=== PATIENT | female | born 1995 | race American Indian/Alaskan Native ===

== ENCOUNTER 2018-12-24 02:00 | Emergency (ER) | payer SELFPAY ==
[2018-12-24 02:07] VITALS: BP 125/83
[2018-12-24 02:36] LABS: Basophils % (Auto) 0.4 % (0.0-1.8); Eosinophils % (Auto) 0.4 % (0.0-4.3); Hematocrit 39.6 % (30.3-42.9); Lymphocytes # (Auto) 2.1 K/mm3 (1.2-5.4); Lymphocytes % (Auto) 43.8 % (13.4-35.0); Mean Corpuscular HGB Conc 33 % (30-34); Mean Corpuscular Volume 85 fl (79-97); Monocytes # (Auto) 0.5 K/mm3 (0.0-0.8); Monocytes % (Auto) 9.6 % (0.0-7.3); Platelet Count 322 K/mm3 (140-440); Red Blood Count 4.64 M/mm3 (3.65-5.03); Red Cell Distribution Width 15.2 % (13.2-15.2)
[2018-12-24 02:44] LABS: Alanine Aminotransferase 11 units/L (7-56); BUN/Creatinine Ratio 14; Blood Urea Nitrogen 11 mg/dL (7-17); Calcium 8.9 mg/dL (8.4-10.2); Hemolysis Index 8
--- NOTE | 2018-12-24 04:46 | Emergency Department Report ---
<LESLYE BUSTAMANTE PARISH - Last Filed: 12/24/18 05:04> ED Female HPI - General Chief complaint: Abdominal Pain Stated complaint: VAGINAL DISCHARGE BLOOD IN URINE MIGRAINES Source: patient Mode of arrival: Ambulatory Limitations: No Limitations - History of Present Illness Initial comments: This is a 23-year-old -[place] female presents to the emergency room with vaginal discharge for a couple of days. She also reports hematuria, pelvic cramping, urinary frequency, and urgency. As mentioned. This 12/06/2015, A1 miscarriage. Past medical history of asthma. Patient states she is sexually active with 1 male partner. She denies back pain. MD Complaint: vaginal discharge, dysuria, possible STD Onset/Timin -: days(s) Location: suprapubic Radiation: non-radiating Severity: mild Severity scale (0 -10): 2 Quality: cramping Consistency: now resolved Improves with: none Worsens with: none Are you Now?: No Last Menstrual Period: 12/05/18 EDC: 09/11/19 Associated Symptoms: vaginal discharge, abdominal pain, hematuria. denies: vaginal bleeding, nausea/vomiting, fever/chills, headaches, loss of appetite, dysuria, rash, seizure, shortness of breath, syncope, weakness - Related Data Sexually active: Yes : 1 Para: 0 A: 1 (miscarriage) Previous Rx's Medication Instructions Recorded Last Taken Type Fluconazole [Diflucan TAB] 150 mg PO ONCE #1 tablet 12/24/18 Unknown Rx Ondansetron [Zofran Odt] 4 mg PO Q6H PRN #15 tab.rapdis 12/24/18 Unknown Rx Sulfamethoxazole/Trimethoprim 1 each PO Q12H #20 tablet 12/24/18 Unknown Rx [Bactrim DS TAB] metroNIDAZOLE [Flagyl] 500 mg PO Q12HR #14 tab 12/24/18 Unknown Rx Allergies Allergy/AdvReac Type Severity Reaction Status Date / Time acetaminophen [From Tylenol] Allergy Hives Verified 12/24/18 02:04 latex Allergy Hives Verified 12/24/18 02:04 ED Review of Systems Constitutional: denies: chills, fever Respiratory: denies: cough, shortness of breath, wheezing Cardiovascular: denies: chest pain, palpitations Gastrointestinal: denies: abdominal pain (abdominal cramping), nausea, diarrhea Genitourinary: hematuria, discharge. denies: urgency, dysuria Musculoskeletal: denies: back pain, joint swelling, arthralgia Skin: denies: rash, lesions Neurological: denies: headache, weakness, paresthesias Psychiatric: denies: anxiety, depression ED Past Medical Hx - Past Medical History Previous Medical History?: Yes Hx Asthma: Yes - Surgical History Past Surgical History?: No - Social History Smoking Status: Current Every Day Smoker Substance Use Type: Alcohol - Medications Home Medications: Home Medications Medication Instructions Recorded Confirmed Last Taken Type Fluconazole [Diflucan TAB] 150 mg PO ONCE #1 tablet 12/24/18 Unknown Rx Ondansetron [Zofran Odt] 4 mg PO Q6H PRN #15 tab.rapdis 12/24/18 Unknown Rx Sulfamethoxazole/Trimethoprim 1 each PO Q12H #20 tablet 12/24/18 Unknown Rx [Bactrim DS TAB] metroNIDAZOLE [Flagyl] 500 mg PO Q12HR #14 tab 12/24/18 Unknown Rx ED Physical Exam - General Limitations: No Limitations General appearance: alert, in no apparent distress - Respiratory Respiratory exam: Present: normal lung sounds bilaterally. Absent: respiratory distress - Cardiovascular Cardiovascular Exam: Present: regular rate, normal rhythm. Absent: systolic murmur, diastolic murmur, rubs, gallop - GI/Abdominal GI/Abdominal exam: Present: soft, normal bowel sounds. Absent: distended, tenderness, guarding, rebound, rigid - External exam: Present: normal external exam Speculum exam: Present: vaginal discharge (malodorous yellowish-green discharge). Absent: erythema, cervical discharge, vaginal bleeding, foreign body, tissue, laceration Bi-manual exam: Present: normal bi-manual exam. Absent: cervical motion tendernes, adnexal tenderness - Back Exam Back exam: Absent: CVA tenderness (R), CVA tenderness (L) - Neurological Exam Neurological exam: Present: alert, oriented X3 - Psychiatric Psychiatric exam: Present: normal affect, normal mood - Skin Skin exam: Present: warm, dry, intact, normal color. Absent: rash ED Medical Decision Making - Lab Data Result diagrams: 12/24/18 02:11 12/24/18 02:11 Lab Results 12/24/18 12/24/18 12/24/18 Range/Units 02:11 02:11 02:11 WBC 4.9 (4.5-11.0) K/mm3 RBC 4.64 (3.65-5.03) M/mm3 Hgb 13.0 (10.1-14.3) gm/dl Hct 39.6 (30.3-42.9) % MCV 85 (79-97) fl MCH 28 (28-32) pg MCHC 33 (30-34) % RDW 15.2 (13.2-15.2) % Plt Count 322 (140-440) K/mm3 Lymph % (Auto) 43.8 H (13.4-35.0) % Banks % (Auto) 9.6 H (0.0-7.3) % Eos % (Auto) 0.4 (0.0-4.3) % Baso % (Auto) 0.4 (0.0-1.8) % Lymph # 2.1 (1.2-5.4) K/mm3 Banks # 0.5 (0.0-0.8) K/mm3 Eos # 0.0 (0.0-0.4) K/mm3 Baso # 0.0 (0.0-0.1) K/mm3 Seg Neutrophils % 45.8 (40.0-70.0) % Seg Neutrophils # 2.2 (1.8-7.7) K/mm3 Sodium 138 (137-145) mmol/L Potassium 3.7 (3.6-5.0) mmol/L Chloride 102.4 (98-107) mmol/L Carbon Dioxide 23 (22-30) mmol/L Anion Gap 16 mmol/L BUN 11 (7-17) mg/dL Creatinine 0.8 (0.7-1.2) mg/dL Estimated GFR > 60 ml/min BUN/Creatinine Ratio 14 % Glucose 85 (65-100) mg/dL Calcium 8.9 (8.4-10.2) mg/dL Total Bilirubin < 0.20 (0.1-1.2) mg/dL AST 20 (5-40) units/L ALT 11 (7-56) units/L Alkaline Phosphatase 94 (35-129) units/L Total Protein 7.5 (6.3-8.2) g/dL Albumin 4.0 (3.9-5) g/dL Albumin/Globulin Ratio 1.1 % HCG, Qual Negative (Negative) - Medical Decision Making This patient was evaluated by this provider. Vitals are stable and patient is in no acute distress. I obtained urinalysis, urine test, CBC, CMP, wet prep, and the gonorrhea and chlamydia via pelvic exam. The CBC, CMP, and test were all unremarkable. The wet prep, urinalysis, and gonorrhea and chlamydia pending. Chart signed to BRYCE Dewitt. On pelvic exam there were malodorous yellowish green discharge. Patient empirically treated with Rocephin and azithromycin. ED Disposition Clinical Impression: Trichomonal infection, STD (sexually transmitted disease), Acute urinary tract infection, Bacterial vaginosis Disposition: DC- TO HOME OR SELFCARE Condition: Stable Instructions: Bacterial Vaginosis (ED), Trichomoniasis (ED), Sexually Transmitted Diseases (ED), Urinary Tract Infection in Women (ED) Additional Instructions: Take medications with food, drink plenty of fluids and follow up with [facility] for further evaluation and tests such as HIV and other sexually transmitted diseases. Return to the ED immediately if symptoms get worse. Ensure that her sexual partner is also treated for the same. Prescriptions: Sulfamethoxazole/Trimethoprim [Bactrim DS TAB] 1 each PO Q12H #20 tablet Fluconazole [Diflucan TAB] 150 mg PO ONCE #1 tablet metroNIDAZOLE [Flagyl] 500 mg PO Q12HR #14 tab Ondansetron [Zofran Odt] 4 mg PO Q6H PRN #15 tab.rapdis PRN Reason: Nausea Referrals: [facility] MD GLADIS [Primary Care Provider] - 3-5 Days Forms: STI Treatment and Prevention Print Language: THAI <RINKU NUÑEZ - Last Filed: 12/24/18 06:07> ED Review of Systems ROS: Stated complaint: VAGINAL DISCHARGE BLOOD IN URINE MIGRAINES Other details as noted in HPI ED Course Vital Signs 12/24/18 02:05 Temperature 98.5 F Pulse Rate 72 Respiratory 18 Rate Blood Pressure 125/83 O2 Sat by Pulse 98 Oximetry - Reevaluation(s) Reevaluation #1: 12/24/18 05:15 I assumed care of the patient from Roque Preciado NP at shift change at 0500 hrs. Patient had presented to the ED with vaginal discharge and lab test results are unremarkable, but urinalysis and wet prep results are pending. Patient is alert and oriented 3 and is not in distress, resting comfortably. Will review these results and disposition the patient appropriately. Reevaluation #2: 12/24/18 05:59 Urinalysis shows acute urinary tract infection. Wet prep shows positive results for Trichomonas and Gardnerella vaginalis. Patient was treated for Trichomonas in the ED with Flagyl 2 g by mouth 1 and Zofran 4 mg ODT SL 1. Patient was discharged home on antibiotics for UTI and Flagyl for bacterial vaginosis. Patient is advised to ensure that he sick her sexual partner was treated for Trichomonas as well as for gonorrhea and chlamydia. The patient was advised to follow up at the [facility] for further evaluation and tests for other STD. Patient was advised to return to the ED immediately if symptoms get worse. ED Medical Decision Making - Lab Data Result diagrams: 12/24/18 02:11 12/24/18 02:11 - Medical Decision Making Urinalysis shows acute urinary tract infection. Wet prep shows positive results for Trichomonas and Gardnerella vaginalis. Patient was treated for Trichomonas in the ED with Flagyl 2 g by mouth 1 and Zofran 4 mg ODT SL 1. Patient was discharged home on antibiotics for UTI and Flagyl for bacterial vaginosis. Patient is advised to ensure that he sick her sexual partner was treated for Trichomonas as well as for gonorrhea and chlamydia. The patient was advised to follow up at the [facility] for further evaluation and tests for other STD. Patient was advised to return to the ED immediately if symptoms get worse. - Differential Diagnosis Trichomonas infection; STD, Acute UTI, Bacterial vaginosis Critical care attestation.: If time is entered above; I have spent that time in minutes in the direct care of this critically ill patient, excluding procedure time. ED Disposition Is pt being admited?: No Does the pt Need Aspirin: No Time of Disposition: 06:07
[2018-12-24] MEDS ORDERED: XYLOCAINE 1% MPF 5 mL INFILTRATI ONE (05:04)
[2018-12-24] MEDS ORDERED: ZITHROMAX PO ONE (05:04)
[2018-12-24] MEDS ORDERED: ROCEPHIN IM ONE (05:04)
[2018-12-24 05:12] LABS: Bacteria,Urine 2+ /HPF (Negative); Bilirubin,Urine NEG (Negative); Blood,Urine NEG (Negative); Color,Urine Yellow (Yellow); Mucus,Urine 3+ /HPF; Protein,Urine <15 mg/dL mg/dL (Negative); Urobilinogen,Urine < 2.0 mg/dL (<2.0)
[2018-12-24] MEDS ORDERED: FLAGYL PO ONE (05:58)
[2018-12-24] MEDS ORDERED: ZOFRAN ODT PO ONE (05:59)
== END 2018-12-24 06:30 | disposition home or self-care (01) ==
LOC: ED 02:00
DX: N39.0 Urinary tract infection, site not specified (principal); A64 Unspecified sexually transmitted disease; A59.9 Trichomoniasis, unspecified; N76.0 Acute vaginitis; B96.89 Other specified bacterial agents as the cause of diseases classified elsewhere; Z88.6 Allergy status to analgesic agent; Z91.040 Latex allergy status
CPT/HCPCS: 36415; 80053; 81001; 84703; 85025; 87086; 87210; 87591; J0696; 96372; Q0162

== ENCOUNTER 2019-10-07 12:27 | Emergency (ER) | payer SELFPAY ==
[2019-10-07 12:33] VITALS: BP 126/74
--- NOTE | 2019-10-07 14:02 | Event Note ---
ED Screening Note Date of service: 10/07/19 Time: 13:40 ED Screening Note: This is a 23-year-old female here reports that she was diagnosed with lupus in [place] about a month ago and now she has rash all over her face with drainage from both ears but rash to ears. She denies any fever or chills. She says she is not feeling well. Pain to right side 2/10 and burning. Denies any shortness of breath. Denies any chest pain. I spoke with attending physician on Main side who will see patient. Treatment plan to be decided by physician This initial assessment/diagnostic orders/clinical plan/treatment(s) is/are subject to change based on patients health status, clinical progression and re- assessment by fellow clinical providers in the ED. Further treatment and workup at subsequent clinical providers discretion. Patient/guardian urged not to elope from the ED as their condition may be serious if not clinically assessed and managed. Initial orders include: To be determined by ED attending physician
--- NOTE | 2019-10-07 15:40 | Emergency Department Report ---
ED General Adult HPI - General Chief complaint: Skin Rash Stated complaint: LUPUS Time Seen by Provider: 10/07/19 13:53 Source: patient, RN notes reviewed Mode of arrival: Ambulatory Limitations: No Limitations - History of Present Illness Initial comments: During the entire physical examination, I am head paper tester and escorted by senior advocate Kezia Biggs The patient is a 23-year-old female. She is not known to myself previously. She states that she is not . She reports that she was presumptively diagnosed with lupus in [place] 2 months ago. She does not know what hospital she was diagnosed after. She states she does not take long-term chronic medications. She states she does not have an indwelling [place] catheter or tampon or female napkin. She presents to the ER with complaints of facial rash for 6 to 8 weeks. This is associated with bilateral external auditory canal redness. There are no fevers, no vomiting, no cough, no abdominal pain. There is no vaginal pain, urinary symptoms, or rectal pain. There is no additional rash. The rash has been constant for the past 2 months. It does not radiate anywhere. It is occasionally painful to touch. She thinks it is a "lupus rash." She does not have a local primary care doctor or brine purifier. -: Gradual, month(s) Location: face Severity scale (0 -10): 9 Consistency: constant Worsens with: other (Rash is occasionally painful, and increases with palpation) - Related Data Previous Rx's Medication Instructions Recorded Last Taken Type Triamcinolone 0.1% [Kenalog 0.1% 1 applic TP TID #1 tube 10/07/19 Unknown Rx CREAM] Allergies Allergy/AdvReac Type Severity Reaction Status Date / Time acetaminophen [From Tylenol] Allergy Hives Verified 12/24/18 02:04 latex Allergy Hives Verified 12/24/18 02:04 ED Review of Systems ROS: Stated complaint: LUPUS Other details as noted in HPI Constitutional: denies: fever Eyes: denies: eye pain ENT: denies: throat pain Respiratory: denies: cough, wheezing Cardiovascular: denies: chest pain Gastrointestinal: denies: abdominal pain Genitourinary: denies: dysuria Musculoskeletal: arthralgia. denies: back pain, myalgia Skin: rash, lesions Neurological: denies: weakness Hematological/Lymphatic: denies: easy bleeding ED Past Medical Hx - Past Medical History Hx Asthma: Yes Additional medical history: LUPUS - Surgical History Past Surgical History?: No - Social History Smoking Status: Never Smoker Substance Use Type: None - Medications Home Medications: Home Medications Medication Instructions Recorded Confirmed Last Taken Type Triamcinolone 0.1% [Kenalog 0.1% 1 applic TP TID #1 tube 10/07/19 Unknown Rx CREAM] ED Physical Exam - General Limitations: No Limitations General appearance: alert, in no apparent distress - Head Head exam: Present: atraumatic, normocephalic - Eye Eye exam: Present: normal appearance, PERRL, EOMI. Absent: nystagmus - ENT ENT exam: Present: normal exam, normal orophraynx, mucous membranes moist, TM's normal bilaterally, normal external ear exam, other (The bilateral external auditory canals have an erythematous rash with crusting, there is no evidence of pus or streaking,) - Neck Neck exam: Present: normal inspection, full ROM. Absent: tenderness, meningismus - Respiratory Respiratory exam: Present: normal lung sounds bilaterally. Absent: respiratory distress - Cardiovascular Cardiovascular Exam: Present: regular rate, normal rhythm, normal heart sounds. Absent: bradycardia, tachycardia, irregular rhythm, systolic murmur, diastolic murmur, rubs, gallop - GI/Abdominal GI/Abdominal exam: Present: soft, normal bowel sounds. Absent: distended, tenderness, guarding, rebound, rigid, pulsatile mass - Extremities Exam Extremities exam: Present: normal inspection, full ROM, other (2+ pulses noted in the bilateral upper and lower extremities. There is no palpable cord. negative Homans sign. Muscular compartments are soft. The pelvis is stable.). Absent: pedal edema, calf tenderness - Back Exam Back exam: Present: normal inspection, full ROM. Absent: tenderness, CVA tenderness (R), CVA tenderness (L), paraspinal tenderness, vertebral tenderness - Neurological Exam Neurological exam: Present: alert, normal gait, other (There is no facial droop. The tongue is midline. Extraocular movements are intact bilaterally. There is 5 out of 5 strength in bilateral upper and lower extremities. Sensation is intact to light touch bilateral upper and lower extremities. There is a normal gait.). Absent: motor sensory deficit - Psychiatric Psychiatric exam: Present: normal affect, normal mood - Skin Skin exam: Present: warm, rash (On the bilateral anterior cheek distribution, there is a Maller rash, which is macular. It is minimally tender. There is crusting. There is no pus or streaking.) ED Course Vital Signs 10/07/19 12:32 Temperature 98.8 F Pulse Rate 95 H Respiratory 14 Rate Blood Pressure 126/74 [Left] O2 Sat by Pulse 100 Oximetry ED Medical Decision Making - Medical Decision Making Vital Signs 10/07/19 12:32 Temperature 98.8 F Pulse Rate 95 H Respiratory 14 Rate Blood Pressure 126/74 [Left] O2 Sat by Pulse 100 Oximetry Differential diagnosis, including but not limited to: Acute cutaneous lupus erythematosus, subacute cutaneous lupus erythematosus, lupus rash Assessment and plan: 23-year-old female with 6 to 8 weeks of facial lupus rash. She is afebrile with reassuring vital signs. She does not have diffuse erythroderma, and she denies vaginal foreign body, and her presentation is not consistent with toxic shock syndrome. Of note, the patient has a red band on her left arm, with martini glasses, that has the name of a local club on it. In addition, the patient is in no acute distress, is afebrile with reassuring vital signs, and is noted to be playing and texting on her cellular phone. Patient can be started on low potency steroid cream, supportive measures, she was instructed that she will need to follow-up with an outpatient primary care doctor, or brine purifier. At the moment, given 2 months of symptoms, benign physical examination, lack of superinfection, she does not appear to have an emergent medical condition present. Return precautions are reviewed. She denies risk factors for coronavirus. Critical care attestation.: If time is entered above; I have spent that time in minutes in the direct care of this critically ill patient, excluding procedure time. ED Disposition Clinical Impression: Rash of face Disposition: DC-01 TO HOME OR SELFCARE Is pt being admited?: No Does the pt Need Aspirin: No Condition: Stable Additional Instructions: Patient should avoid exposure to sun, UV light, and radiation in general. Patient should keep her skin covered if outside. Patient may alternate ice packs and warm compresses as needed for skin discomfort. Take the triamcinolone medication as directed, and follow-up with a primary care doctor, brine purifier, or operator receptionist within the next 2 weeks. Avoid exposure to alcohol, marijuana, smoke products. Please return to the emergency room right away with new, worsened or different symptoms, or symptoms not present on the initial emergency room evaluation. [facility], [facility] are local primary care practices. Dr. Salmon is a local primary care doctor. Dr. Jorge is a local operator receptionist. Referrals: MARCELLUS SALMON MD [Staff Physician] - 3-5 Days [facility] [Provider Group] - 3-5 Days [facility] [Provider Group] - 3-5 Days GENEVA JORGE MD [Staff Physician] - as needed
== END 2019-10-07 16:06 | disposition home or self-care (01) ==
LOC: ED 12:27
DX: R21 Rash and other nonspecific skin eruption (principal); J45.909 Unspecified asthma, uncomplicated; Z88.6 Allergy status to analgesic agent; Z91.040 Latex allergy status
CPT/HCPCS: 99281